=== PATIENT | female | born 1980 | race Caucasian/White ===

== ENCOUNTER → 2019-10-15 13:34 | Outpatient (CLI) | payer OTHER, SELFPAY ==
--- NOTE | ~2019-10-15 | XR_ITS ---
XR abdomen/kub 1V 10/15/2019 14:03 INDICATION: Left lower quadrant pain TECHNIQUE: KUB COMPARISON: None FINDINGS: Bowel gas pattern is normal. There is no evidence of free air, mass, organomegaly, ascites or obstruction. No abnormal calculi are seen. There is a pelvic phlebolith on the right. The bones appear intact. IMPRESSION: 1: No acute abdominal abnormality identified. Reviewed, dictated and finalized at location A.
--- NOTE | ~2019-10-15 | CT_ITS ---
EXAMINATION: CT abdomen pelvis wo con DATE: 10/15/2019 14:03 INDICATION: Left lower quadrant abdominal pain TECHNIQUE: Computed tomography (CT) of the abdomen and pelvis was performed without intravenous contr ast. The dose-length product was 755.31 mGy-cm. Automated exposure control and iterative reconstructi on technique were employed. COMPARISON: KUB dated 10/15/2019 FINDINGS: Lung bases are unremarkable. No significant pleural or pericardial effusion. Heart size is normal. The liver, spleen, pancreas, adrenal glands and kidneys are unremarkable. Gallbladder is present. Non obstructive bowel gas pattern. Normal appendix. No free air or free fluid. No lymphadenopathy. No sig nificant vascular abnormality. No acute abdominal abnormality. No acute osseous abnormality. IMPRESSION: 1. No acute abdominal abnormality. No findings to account for patient's symptoms. Reviewed, dictated and finalized at location A. IMPRESSION: 1. No acute abdominal abnormality. No findings to account for patient's symptom s.
== END ==
PROVIDERS: PCP Internal Medicine; Visit Provider Urology
DX: R10.32 Left lower quadrant pain (principal)
CPT/HCPCS: 74018; 74176

== ENCOUNTER → 2020-01-02 13:57 | Outpatient (CLI) | payer OTHER, SELFPAY ==
--- NOTE | ~2020-01-02 | XR_ITS ---
EXAMINATION: XR ribs LT 2V w CXR 2V INDICATION: Left lower rib pain TECHNIQUE: PA and lateral views of the chest and 3 views of the left ribs were obtained. COMPARISON: None. FINDINGS: The lungs are free of acute opacities. There is no pleural effusion or pneumothorax. The ca rdiomediastinal silhouette is normal. No displaced rib fracture is identified. There are no osseous c hanges of bony healing in the ribs. IMPRESSION: 1. No acute cardiopulmonary abnormality or evidence of displaced rib fracture. Reviewed, dictated and finalized at location A.
== END ==
PROVIDERS: PCP Internal Medicine; Visit Provider Internal Medicine
DX: R10.9 Unspecified abdominal pain (principal)
CPT/HCPCS: 71046; 71100

== ENCOUNTER 2020-03-17 11:20 | Outpatient (CLI) | payer OTHER, SELFPAY ==
--- NOTE | ~2020-03-17 | MM_ITS ---
EXAMINATION: MM screening yaquelin BI w juan HISTORY: Screening TECHNIQUE: Craniocaudal and mediolateral oblique 3-D tomosynthesis images were obtained and synthetic 2-D images were generated. CAD analysis was submitted and interpreted. COMPARISON: No prior mammogram is available for comparison at this institution. BREAST PARENCHYMAL COMPOSITION: There are scattered areas of fibroglandular density. FINDINGS: There is no evidence of suspicious mass, calcification, or architectural distortion to sugg est malignancy in either breast. There has been no suspicious interval change. IMPRESSION: 1. No mammographic evidence of malignancy. 2. Recommend routine screening mammography in one year. BI-RADS Category 1: Negative Reviewed, dictated and finalized at location A. ROLLER
== END 2020-03-17 11:21 | disposition home or self-care (01) ==
LOC: ANHIMG 11:24
PROVIDERS: PCP Internal Medicine; Visit Provider Internal Medicine
DX: Z12.31 Encounter for screening mammogram for malignant neoplasm of breast (principal)
CPT/HCPCS: 77063; 77067

== ENCOUNTER 2020-08-06 10:46 | Outpatient (CLI) | payer OTHER, SELFPAY ==
[2020-08-06 11:32] LABS: Hematocrit 40.1 % (37.0-47.0); Hemoglobin 13.1 g/dL (12.0-15.0); Mean Corpuscular HGB Conc 32.7 g/dl (32-36); Mean Corpuscular Hemoglobin 29.2 pg (26-34); Mean Corpuscular Volume 89.5 fl (80-100); Mean Platelet Volume 9.5 fl (7.4-10.4); Platelet Count Result 303 k/mm3 (150-375); Red Blood Count 4.48 M/mm3 (4.2-5.4); Red Cell Distribution Width 12.8 % (11.5-14.5); White Blood Count 10.5 K/mm3 (4.5-10.0)
[2020-08-06 12:11] LABS: Free T4 Free Thyroxine 0.74 ng/mL (0.78-2.19)
[2020-08-10 23:01] LABS: EBV Nuclear Ab Interpretation Past; EBV Virus Capsid Ag IgG Ab >750.00 U/mL (<18.00); EBV Virus Capsid Ag IgM Ab <36.00 U/mL (<36.00)
== END 2020-08-06 10:47 | disposition home or self-care (01) ==
PROVIDERS: PCP Internal Medicine; Visit Provider Obstetrics & Gynecology
DX: R53.83 Other fatigue (principal); B27.90 Infectious mononucleosis, unspecified without complication
CPT/HCPCS: 36415; 84439; 84443; 85027; 86664; 86665

== ENCOUNTER 2023-02-14 10:45 | Outpatient (CLI) | payer OTHER, SELFPAY ==
--- NOTE | ~2023-02-14 | MM_ITS ---
EXAMINATION: MM screening yaquelin BI w juan HISTORY: Screening TECHNIQUE: Craniocaudal and mediolateral oblique 3-D tomosynthesis images were obtained and synthetic 2-D images were generated. CAD analysis was submitted and interpreted. COMPARISON: 03/17/2020 BREAST PARENCHYMAL COMPOSITION: There are scattered areas of fibroglandular density. FINDINGS: There is no evidence of suspicious mass, calcification, or architectural distortion to sugg est malignancy in either breast. There has been no suspicious interval change. IMPRESSION: 1. No mammographic evidence of malignancy. 2. Recommend routine screening mammography in one year. BI-RADS Category 1: Negative Reviewed, dictated and finalized at location A. E GRINDER
== END 2023-02-14 10:46 | disposition home or self-care (01) ==
LOC: CHSIMG 10:47
PROVIDERS: PCP Family Medicine; Visit Provider Obstetrics & Gynecology
DX: Z12.31 Encounter for screening mammogram for malignant neoplasm of breast (principal)
CPT/HCPCS: 77063; 77067

== ENCOUNTER 2023-07-26 09:43 | Outpatient (CLI) | payer OTHER, SELFPAY ==
[2023-07-26 10:08] LABS: Hematocrit 40.4 % (37.0-47.0); Hemoglobin 13.1 g/dL (12.0-15.0); Mean Corpuscular HGB Conc 32.4 g/dl (32-36); Mean Corpuscular Volume 89.4 fl (80-100); Mean Platelet Volume 9.1 fl (7.4-10.4); Platelet Count Result 287 k/mm3 (150-375); Red Blood Count 4.52 M/mm3 (4.2-5.4); Red Cell Distribution Width 13.2 % (11.5-14.5); White Blood Count 10.9 K/mm3 (4.5-10.0)
== END 2023-07-26 09:44 | disposition home or self-care (01) ==
LOC: ANHSURGERY 09:48
PROVIDERS: Visit Provider Obstetrics & Gynecology
DX: N84.0 Polyp of corpus uteri (principal); N93.9 Abnormal uterine and vaginal bleeding, unspecified
CPT/HCPCS: 36415; 85027

== ENCOUNTER 2023-08-02 00:23 | Day surgery (SDC) | payer OTHER, SELFPAY ==
[2023-07-25 12:19] VITALS: BMI 32.5
--- NOTE | 2023-07-25 12:27 | PC.NURSE ---
Report to the Outpatient Waiting Room, entrance under the green pavilion located off [facility], at time 6:30 on date 08/02/23. Planned Procedure Time: 8:30. Time changes happen often and if your time is changed the preop area will call you the afternoon before. - You and your visitor will be asked to self-screen and do not enter if you have any COVID symptoms. - A mask is optional within the hospital at this time. Patients may have clear liquids (water, carbonated beverages, clear teas, apple juice) until 3 hours prior to surgery (5:30) with a maximum of 20 ounces. - No food from midnight until time of surgery Take the following medications with a SIP of water the morning of surgery: NONE DO NOT STOP ANY OF YOUR OTHER PRESCRIPTION MEDICATIONS PRIOR TO SURGERY ?EXCEPT THE FOLLOWING Medications to discontinue per physician: VITAMINS/SUPPLEMENTS Date to take last dose: 07/29/23 Please no make-up, nail uruguayan, hairspray, perfume, deodorant, or body powder the day of surgery. No jewelry (including any body piercings) or valuables the day of surgery, leave them at home. Please take a shower or bath the night before, or the morning of, surgery with an antibacterial soap. Wear comfortable, loose fitting clothing. - Jewelry must be removed prior to entering the operating room. Rings and piercings that are not removed may be cut off. - The hospital will not accept responsibility for valuables. - Please leave all valuables, including medications, at home the day of surgery. If you are going home after surgery, a licensed racecar driver must drive you home. - NO public transportation without another adult if you receive anesthesia. - We recommend that an adult stay with you for 24 hours following discharge. - We also recommend that you do not drive, make important decision, drink alcoholic beverages, or take any drugs that were not prescribed by your health care provider for at least 24 hours after your discharge time. Follow any additional instructions given to you from your surgeon. If you or anyone in your household have experienced Covid symptoms in the past week, please notify your surgeon or the nurse liaison at the phone number below for possible testing. Telephone instructions given to NEO GALEAS and asked if any additional questions and then verbalized understanding. Patient advised to call surgeon office or pre surgery nurse liaison [phone] if any additional questions.
--- NOTE | 2023-07-31 16:31 | PM.IMHP ---
H&P: HPI History of Present Illness Date/Time: 07/31/23 16:31 43-year-old 2 para 2003 female presents for evaluation treatment of heavy vaginal bleeding. She had been on daily progesterone which she is no longer taking due to side effects, and her bleeding has become heavier and more prolonged. Cycles lasting 5-7 days 3-5 days heavy with clotting and cramping. Ultrasound was ordered which showed uterus to be normal size and shape with a endocervical or endometrial polyp noted. Presents today therefore for further evaluation in the form hysteroscopic exam, as well as endometrial ablation. She has had a bilateral salpingectomy in the past. Chief Complaint: Menorrhagia Review of Systems Review of Systems: All systems reviewed & are unremarkable except as noted in HPI and below PMFSH Past Medical History Medical History Abnormal Pap smear of cervix 08-02-2020 atypical cells hpv negative rpt pap at [facility] in 2019 ADHD Depression Mass of left axilla Preeclampsia Rectal bleeding Screening mammogram, encounter for Surgical History Surgical History History of bilateral salpingectomy (01/03/18) History of laparoscopy (~2004) endometriosis Family History Family History Grandparent Acute myocardial infarction paternal grandfather Carcinoma of colon maternal grandmother Father Acute myocardial infarction Malignant neoplasm of liver Social History Social History Smoking status: Never smoker Second hand tobacco smoke exposure: No Alcohol intake: never Substance use: current Substance use type: marijuana Other substance usage details: 2 x week Do You Feel Safe in your Home?: Yes Lack of Transportation: No Lack of Food: Never True Current Housing: I Have Housing Concerned About Future Housing: No Difficulty Paying Gas/Electric Bills: No Difficulty Paying for Meds: No Currently Unemployed: No Education: Grade School Difficulty w/ Childcare or Family Care: No Living arrangements: with family Additional living arrangements comments: Occupation/Education: other Additional occupation/education comments: stay at home mom Gender identity (if verbalized by the patient): Female Sexual Orientation (if Verbalized by the Patient): Straight or Heterosexual Spiritual care concerns: No Meds Home Medications and Allergies Home Medications Medication Instructions Recorded Confirmed Type sertraline 25 mg tablet 25 mg PO DAILY 05/30/23 07/25/23 History sertraline 50 mg tablet 50 mg PO DAILY 05/30/23 07/25/23 History Lactobacillus acidophilus 10 10,000 mmu cells PO DAILY 07/25/23 07/25/23 History billion cell capsule (Probiotic) fexofenadine 180 mg tablet 180 mg PO DAILY 07/25/23 07/25/23 History magnesium 250 mg tablet 250 mg PO DAILY 07/25/23 07/25/23 History multivitamin 1 tablet PO DAILY 07/25/23 07/25/23 History spironolactone 100 mg tablet 100 mg PO DAILY 07/25/23 07/25/23 History Allergies Allergy/AdvReac Type Severity Reaction Status Date / Time ciprofloxacin AdvReac Intermediate Gastrointestinal Verified 07/25/23 12:16 Upset Exam Const: General: cooperative Resp: Effort & Inspection: normal respiratory effort Auscultation: clear to auscultation bilaterally Cardio: Rate: regular rate Rhythm: regular rhythm GI: Inspection: normal to inspection Auscultation: normal bowel sounds : External Female Exam: normal external appearance Speculum Exam - Vagina: normal appearance of the vagina Speculum Exam - Cervix: normal appearance of the cervix Bimanual exam- vagina & uterus: normal bimanual exam Bimanual Exam- Adnexa, other: normal adnexae Assessment and Plan Assessment and plan (1) Menorrhagia:
[2023-08-02 07:20] VITALS: BP 111/68; PULSE 65; RESP 14; TEMP 36.3; O2SAT 100
[2023-08-02] MEDS: LACTATED RINGERS 1,000 ML 30 ML IV CONT (07:20)
[2023-08-02] MEDS: ACETAMINOPHEN 500 MG TABLET 1000 MG PO (07:20)
--- NOTE | 2023-08-02 07:53 | WPDANESEPPF ---
Anes - Initial Pre Proc Eval Procedure: Operation Date: 08/02/23 08:30 Proposed Procedures p Hysteroscopy, Dilation and Curettage with Polypectomy, Claudia Endometrial Ablation - Solomon Bishop MD Date/Time: 08/02/23 07:53 Surgeon: Solomon Bishop MD Pre Op Diagnosis: abn uterine bleeding, pelvic pain Patient Data Age: 43 Gender: F Height: 1.63 m Weight: 88.55 kg Last Vital Signs Temp 97.3 F L 08/02/23 07:20 Pulse 65 08/02/23 07:20 Resp 14 08/02/23 07:20 BP 111/68 08/02/23 07:20 Pulse Ox 100 08/02/23 07:20 O2 Del Method Room Air 08/02/23 07:20 Allergies Allergy/AdvReac Type Severity Reaction Status Date / Time ciprofloxacin AdvReac Intermediate Gastrointestinal Verified 08/02/23 07:40 Upset Home Medications Medication Instructions Recorded Confirmed Type sertraline 25 mg tablet 25 mg PO DAILY 05/30/23 07/25/23 History sertraline 50 mg tablet 50 mg PO DAILY 05/30/23 07/25/23 History Lactobacillus acidophilus 10 10,000 mmu cells PO DAILY 07/25/23 07/25/23 History billion cell capsule (Probiotic) fexofenadine 180 mg tablet 180 mg PO DAILY 07/25/23 07/25/23 History magnesium 250 mg tablet 250 mg PO DAILY 07/25/23 07/25/23 History multivitamin 1 tablet PO DAILY 07/25/23 07/25/23 History spironolactone 100 mg tablet 100 mg PO DAILY 07/25/23 07/25/23 History Patient hx anesthesia problems: none Family hx anesthesia problems: none Results Review: All pre-operative results and documents have been reviewed as part of the pre-operative evaluation. [facility] Past Medical History Medical History Abnormal Pap smear of cervix 08-02-2020 atypical cells hpv negative rpt pap at [facility] in 2019 ADHD Depression Mass of left axilla Preeclampsia Rectal bleeding Screening mammogram, encounter for Surgical History Surgical History History of bilateral salpingectomy (01/03/18) History of laparoscopy (~2004) endometriosis Family History Family History Grandparent Acute myocardial infarction paternal grandfather Carcinoma of colon maternal grandmother Father Acute myocardial infarction Malignant neoplasm of liver Social History Social History Smoking status: Never smoker Second hand tobacco smoke exposure: No Alcohol intake: never Substance use: current Substance use type: marijuana Other substance usage details: 2 x week Do You Feel Safe in your Home?: Yes Lack of Transportation: No Lack of Food: Never True Current Housing: I Have Housing Concerned About Future Housing: No Difficulty Paying Gas/Electric Bills: No Difficulty Paying for Meds: No Currently Unemployed: No Education: Grade School Difficulty w/ Childcare or Family Care: No Living arrangements: with family Additional living arrangements comments: Occupation/Education: other Additional occupation/education comments: stay at home mom Gender identity (if verbalized by the patient): Female Sexual Orientation (if Verbalized by the Patient): Straight or Heterosexual Spiritual care concerns: No Anes - Eval Final PreProcedure Day of Procedure 08/02/23 07:53 Patient weight: obese Heart: regular rate and rhythm Lungs: clear to auscultation Airway: Mallampati scale class II Neurological: alert and oriented Last oral intake: >/= 8 hours ASA classification: II Emergent: no Anesthetic plan: proceed Anesthesia type and monitoring: general GIVS and standard monitoring Results Review: All pre-operative results and documents have been reviewed as part of the pre-operative evaluation. Informed Consent: The patient's anesthetic plan and its attendant risks and benefits were discussed with the patient/family/POA. Questions were so
--- NOTE | 2023-08-02 08:17 | WPDHPUPDATE1 ---
History and Physical Update Update Date/Time: 08/02/23 08:17 History and Physical has been reviewed, including an updated exam of the patient. There are NO changes in the patient's condition. Risks, benefits, and alternatives have been discussed and questions answered. Patient agrees to proceed with procedure.
[2023-08-02] MEDS: ceFAZolin 2 GM/D5W 50 ML 2 GM/50 ML BAG IVPB (08:20)
--- NOTE | 2023-08-02 08:38 | W.PM.PROC2 ---
Procedure Note - Detailed Date of Procedure 08/02/23 Pre-op Diagnosis abn uterine bleeding, pelvic pain Post-op Diagnosis Same Procedure Performed 1. Hysteroscopy with uterine curettings 2. Endometrial ablation Surgeon Solomon Bishop MD Anesthesia MAC Findings Thickened endometrial cavity, no polyps or fibroids noted Description of Procedure Patient prepped and draped usual manner for this procedure. Cervix was dilated to allow the hysteroscope to be placed which revealed findings as noted above. Curettings were obtained of all 4 quadrants, and the endometrial ablation instrument was placed. Cavity assessment performed, instrument was activated, and at the end of the procedure hysteroscopic exam was evaluated again with no evidence of abnormalities in good destruction throughout. Patient was then sent to the recovery room in stable condition. Estimated Blood Loss 10 Drains No Packing No Pathology Yes Complications No immediate complications Condition Stable Disposition PACU [facility] Billing Surgery - Charge Forward: Surgery Billing
[2023-08-02 08:40] VITALS: BP 105/66; PULSE 56; RESP 16; O2SAT 98
[2023-08-02 09:10] VITALS: BP 105/69; PULSE 56; RESP 20
[2023-08-02 09:40] VITALS: BP 111/68; PULSE 55; RESP 20
== END 2023-08-02 09:44 | disposition home or self-care (01) ==
PROVIDERS: Visit Provider Obstetrics & Gynecology
PROC: 0U5B8ZZ Destruction of Endometrium, Via Natural or Artificial Opening Endoscopic (ICD-10-PCS; CPT 58563; principal; 2023-08-02 08:30)
DX: N92.0 Excessive and frequent menstruation with regular cycle (principal); F90.9 Attention-deficit hyperactivity disorder, unspecified type; F32.A Depression, unspecified; F12.90 Cannabis use, unspecified, uncomplicated; E66.9 Obesity, unspecified; Z68.33 Body mass index [BMI] 33.0-33.9, adult; Z98.890 Other specified postprocedural states; Z80.0 Family history of malignant neoplasm of digestive organs; Z82.49 Family history of ischemic heart disease and other diseases of the circulatory system
CPT/HCPCS: 58563; 88305; A9270; J0690; J1100; J2250; J2405; J2704; J3010; J7120